=== PATIENT | female | born 1930 | race African-American/Black ===

== ENCOUNTER 2021-06-17 15:22 | Inpatient (IN) | payer MEDICARE, MEDICAID ==
[~2021-06-17] VITALS: Ht 157.5 cm; Wt 79.8 kg
[2021-06-17] MEDS ORDERED: LIDOCAINE HCL/EPINEPHRINE 1%-EPI 1:100,000 20 ML VIAL INFIL ONE (17:30)
[2021-06-17] MEDS ORDERED: BACITRACIN ZINC OINT UDPKT TOP ONE (17:30)
[2021-06-17 18:27] LABS: BASOPHILS % 0.6 % (0.0-2.0); EOSINOPHILS % 1.6 % (0.0-5.0); HEMATOCRIT. 33.4 % (36.0-48.0); HEMOGLOBIN. 11.3 g/dL (12.0-16.0); LYMPHOCYTES % 35.5 % (20.0-50.0); MEAN CORPUSCULAR HEMOGLOBIN 28.5 pg (28.0-32.0); MEAN CORPUSCULAR VOLUME 84.3 fL (81.0-99.0); MEAN PLATELET VOLUME 8.3 fl (7.4-10.4); MONOCYTES % 7.6 % (2.0-8.0); NEUTROPHILS % 54.7 % (40.0-76.0); PLATELET 225 x1000/uL (130-400); RED BLOOD CELL COUNT 3.96 mill/uL (4.2-5.4); RED CELL DISTRIBUTION WIDTH 16.3 % (11.6-14.6)
[2021-06-17 18:41] LABS: INR 1.1; PARTIAL THROMBOPLASTIN TIME 27.1 sec (23.4-31.0); PROTHROMBIN TIME 11.4 sec (9.6-11.0)
[2021-06-17 18:45] LABS: CHLORIDE 109 mEq/L (98-107)
[2021-06-17] MEDS ORDERED: MORPHINE SULFATE 2 MG/ML CPJ (NOT FOR IM USE) IV PRN (19:00)
[2021-06-17] MEDS ORDERED: ONDANSETRON HCL 4MG/2ML INJ IV PRN (19:00)
[2021-06-17] MEDS ORDERED: CLONIDINE 0.1MG TABLET PO PRN (19:00)
[2021-06-17] MEDS ORDERED: ACETAMINOPHEN 325MG TABLET PO PRN (19:00)
[2021-06-17] MEDS ORDERED: LIDOCAINE HCL 1%/EPI 1:200,000 30 ML VIAL MC ONE (19:00)
[2021-06-17] MEDS ORDERED: LIDOCAINE HCL/EPINEPHRINE 1%-EPI 1:100,000 10 ML VIAL IJ NR (19:00)
[2021-06-17] MEDS ORDERED: LIDOCAINE 1%/EPI 1:200,000 10 ML VIAL IJ NR (19:09)
[2021-06-17] MEDS ORDERED: VANCOMYCIN 1 G PREMIX 200 ML IV NR (19:30)
[2021-06-17] MEDS ORDERED: PIPERACILLIN/TAZ 3.375G PREMIX 3.375 ML IV NR (19:30)
[2021-06-17] MEDS: SODIUM CHLORIDE 0.45% 1,000 ML IV SCH (19:30)
[2021-06-17] MEDS ORDERED: VANCOMYCIN 1 G PREMIX 200 ML IV SCH (20:00)
[2021-06-17] MEDS ORDERED: CEFTRIAXONE 1 G PREMIX 50 ML IV ONE (20:00)
[2021-06-17 23:30] VITALS: BP 150/64
[2021-06-18 01:32] VITALS: BP 150/64
[2021-06-18 04:00] VITALS: BP 165/62
[2021-06-18] MEDS ORDERED: PIPERACILLIN/TAZOBACTAM 3.375 G in DEXTROSE 5% WATER 50 ML IV SCH (06:00)
[2021-06-18 06:26] LABS: BASOPHILS % 0.6 % (0.0-2.0); EOSINOPHILS % 1.4 % (0.0-5.0); HEMATOCRIT. 34.1 % (36.0-48.0); HEMOGLOBIN. 11.7 g/dL (12.0-16.0); LYMPHOCYTES % 31.4 % (20.0-50.0); MEAN CORPUSCULAR HEMOGLOBIN 28.5 pg (28.0-32.0); MEAN PLATELET VOLUME 8.8 fl (7.4-10.4); MONOCYTES % 6.5 % (2.0-8.0); NEUTROPHILS % 60.1 % (40.0-76.0); PLATELET 233 x1000/uL (130-400); RED BLOOD CELL COUNT 4.11 mill/uL (4.2-5.4)
[2021-06-18] MEDS ORDERED: LOSA25TA26 MT (07:02)
[2021-06-18] MEDS ORDERED: SIMV5TAB58 MT (07:02)
[2021-06-18] MEDS ORDERED: DILT30TA38 MT (07:02)
[2021-06-18] MEDS: PIPERACILLIN/TAZOBACTAM 3.375 G in DEXTROSE 5% WATER 50 ML IV SCH ×3 (07:27→22:27)
[2021-06-18] MEDS ORDERED: NALOXONE HCL 0.4MG/ML VIAL IV PRN (07:30)
[2021-06-18 08:00] VITALS: BP 137/50
[2021-06-18 08:47] LABS: CHLORIDE 109 mEq/L (98-107)
[2021-06-18 08:54] LABS: LDL CHOLESTEROL 66 mg/dL (5-100)
[2021-06-18 08:55] LABS: HDL CHOLESTEROL 58 mg/dL (40-59)
[2021-06-18] MEDS ORDERED: VANCOMYCIN 1500MG in DEXTROSE 5% WATER 250ML IV SCH (09:00)
[2021-06-18 12:00] VITALS: BP 123/55
[2021-06-18] MEDS: SODIUM CHLORIDE 0.45% 1,000 ML IV SCH ×2 (13:12→22:05)
[2021-06-18] MEDS: LOSARTAN POTASSIUM 25 MG TABLET PO SCH (13:23)
[2021-06-18] MEDS: DILTIAZEM HCL 30MG TABLET PO SCH ×2 (13:23→17:14)
[2021-06-18] MEDS ORDERED: VANCOMYCIN 750 MG PREMIX 150 ML IV SCH (15:00)
[2021-06-18 15:05] LABS: CLARITY URINE CLOUDY (CLEAR); COLOR URINE YELLOW (YELLOW); KETONES URINE TRACE (NEGATIVE); LEUKOCYTE ESTERASE URINE 1+ (NEGATIVE); NITRITE URINE NEGATIVE (NEGATIVE); OCCULT BLOOD URINE 3+ (NEGATIVE); PROTEIN URINE TRACE (NEGATIVE); SPECIFIC GRAVITY URINE 1.018 (1.005-1.030)
[2021-06-18 16:00] VITALS: BP 161/65
[2021-06-18 20:00] VITALS: BP 146/61
[2021-06-18] MEDS ORDERED: ATORVASTATIN CALCIUM 10MG TABLET PO SCH (21:00)
[2021-06-19] VITALS: BP 145/49
[2021-06-19 04:00] VITALS: BP 140/59
[2021-06-19] MEDS: PIPERACILLIN/TAZOBACTAM 3.375 G in DEXTROSE 5% WATER 50 ML IV SCH ×2 (05:22→13:17)
[2021-06-19 08:00] VITALS: BP 157/56
[2021-06-19] MEDS ORDERED: VANCOMYCIN 750 MG PREMIX 150 ML IV SCH (08:00)
[2021-06-19 08:11] LABS: PHOSPHORUS 3.8 mg/dL (2.5-4.9)
[2021-06-19 08:14] LABS: BASOPHILS % 0.6 % (0.0-2.0); EOSINOPHILS % 2.7 % (0.0-5.0); HEMATOCRIT. 30.5 % (36.0-48.0); HEMOGLOBIN. 10.6 g/dL (12.0-16.0); LYMPHOCYTES % 30.6 % (20.0-50.0); MEAN CORPUSCULAR HEMOGLOBIN 28.6 pg (28.0-32.0); MEAN CORPUSCULAR VOLUME 82.5 fL (81.0-99.0); MEAN PLATELET VOLUME 8.7 fl (7.4-10.4); MONOCYTES % 7.3 % (2.0-8.0); NEUTROPHILS % 58.8 % (40.0-76.0); PLATELET 228 x1000/uL (130-400); RED CELL DISTRIBUTION WIDTH 16.2 % (11.6-14.6)
[2021-06-19] MEDS: DILTIAZEM HCL 30MG TABLET PO SCH ×2 (09:30→13:17)
[2021-06-19] MEDS: LOSARTAN POTASSIUM 25 MG TABLET PO SCH (09:30)
[2021-06-19 12:00] VITALS: BP 147/44
[2021-06-19 12:13] VITALS: BP 147/44
[2021-06-19] MEDS: SODIUM CHLORIDE 0.45% 1,000 ML IV SCH (13:18)
== END 2021-06-19 13:40 | disposition home or self-care (01) | DRG 345 ==
LOC: ER 15:22 → 6EST 18:38 → ENRESERV 20:53
PROVIDERS: ADMIT Internal Medicine Nephrology; ATTEND Internal Medicine Nephrology
PROC: 0D9P0ZZ Drainage of Rectum, Open Approach (ICD-10-PCS; principal; 2021-06-17)
PROC: 0D9P0ZZ Drainage of Rectum, Open Approach (ICD-10-PCS; 2021-06-17)
DX: K61.1 Rectal abscess (principal); L02.31 Cutaneous abscess of buttock; E78.00 Pure hypercholesterolemia, unspecified; E78.5 Hyperlipidemia, unspecified; I25.10 Atherosclerotic heart disease of native coronary artery without angina pectoris; K57.90 Diverticulosis of intestine, part unspecified, without perforation or abscess without bleeding; I71.2 Thoracic aortic aneurysm, without rupture; I11.9 Hypertensive heart disease without heart failure; B83.9 Helminthiasis, unspecified; Z95.1 Presence of aortocoronary bypass graft
CPT/HCPCS: 36415; 71045; 74176; 80048; 80053; 80061; 81003; 82270; 83540; 83550; 83735; 84100; 84443; 84484; 85025; 86850; 86900; 93005; 93306; 93970; 99285; J2543; J3370; J3490; J7060